=== PATIENT | male | born 1985 | race Two or more races ===

== ENCOUNTER 2018-11-21 07:54 | Day surgery (SDC) | payer OTHER ==
[2018-11-21] MEDS ORDERED: COLACE100 MG PO (10:22)
[2018-11-21] MEDS ORDERED: PERCOCET 5-3251 EACH PO (10:22)
== END 2018-11-21 17:00 | disposition home or self-care (01) ==
LOC: CIR.AMB 07:54
DX: K60.3 Anal fistula (principal)

== ENCOUNTER 2019-04-17 06:36 | Day surgery (SDC) | payer OTHER ==
[~2019-04-17 06:36] MED LIST: COLACE100 MG PO; PERCOCET 5-3251 EACH PO
[2019-04-17] MEDS ORDERED: COLACE100 MG PO (10:35)
[2019-04-17] MEDS ORDERED: PERCOCET 5-3251 EACH PO (10:35)
== END 2019-04-17 19:20 | disposition home or self-care (01) ==
LOC: CIR.AMB 06:36
DX: K60.3 Anal fistula (principal)